=== PATIENT | male | born 1995 | race Caucasian/White ===

== ENCOUNTER 2017-05-13 17:45 | Emergency (ER) | payer SELFPAY ==
[~2017-05-13] VITALS: Ht 162.6 cm; Wt 72.6 kg
[2017-05-13 18:06] VITALS: BP 138/87
[2017-05-13] MEDS ORDERED: DIPHTH,PERTUSS(ACELL),TET TOX 0.5 ML DISP.SYRIN. VAX IM ONE (18:45)
[2017-05-13] MEDS ORDERED: diphenhydrAMINE HCL 25 MG CAPSULE PO ONE (18:45)
[2017-05-13] MEDS ORDERED: DEXAMETHASONE SOD PHOS 20 MG/5 ML VIAL. IM ONE (18:45)
[2017-05-13] MEDS ORDERED: FAMOTIDINE 20 MG TABLET. PO ONE (18:45)
[2017-05-13] MEDS ORDERED: PRED50TA PO (18:55)
[2017-05-13] MEDS ORDERED: FAMO20TA5 PO (18:55)
--- NOTE | 2017-05-13 18:55 | PHYS DOC ---
Past Medical History Past Medical History: Other Additional Past Medical Histor: RENAL AGENESIS Past Surgical History: No Surgical History Alcohol Use: None Drug Use: None Adult General Chief Complaint Chief Complaint: SKIN PROBLEM HPI HPI Patient is a 21 year old male who presents with a rash throughout his body that began yesterday. Patient denies any known cause for the rash though he states yesterday he picked a mice in his house and had it in his pocket for a while. Patient denies the mice bitting him. Patient denies any difficulty breathing or throat swelling or tongue swelling. Review of Systems Review of Systems Constitutional: Denies fever or chills [] Musculoskeletal: Denies back pain or joint pain [] Integument: rash Neurologic: Denies headache, focal weakness or sensory changes [] All other systems were reviewed and found to be within normal limits, except as documented in this note. Current Medications Current Medications Current Medications Medications (Trade) Dose Ordered Sig/Karli Start Time Stop Time Status Last Admin Dose Admin Dexamethasone Sodium Phosphate (Decadron) 10 mg 1X ONCE 05/13/17 18:45 05/13/17 18:46 DC 05/13/17 18:51 10 MG Diphenhydramine HCl (Benadryl) 25 mg 1X ONCE 05/13/17 18:45 05/13/17 18:46 DC 05/13/17 18:52 25 MG Diphtheria/ Tetanus/Acell Pertussis (Boostrix) 0.5 ml ONCE ONCE 05/13/17 18:45 05/13/17 18:46 DC 05/13/17 18:50 0.5 ML Famotidine (Pepcid) 20 mg 1X ONCE 05/13/17 18:45 05/13/17 18:46 DC 05/13/17 18:53 20 MG Allergies Allergies Allergies Coded Allergies Type Severity Reaction Last Updated Verified No Known Drug Allergies 05/13/17 No Physical Exam Physical Exam Constitutional: Well developed, well nourished, no acute distress, non-toxic appearance. [] HENT: Normocephalic, atraumatic, bilateral external ears normal, oropharynx moist, no oral exudates, nose normal. [] Eyes: PERRLA, EOMI, conjunctiva normal, no discharge. [] Neck: Normal range of motion, no tenderness, supple, no stridor. [] Cardiovascular:Heart rate regular rhythm, no murmur [] Lungs & Thorax: Bilateral breath sounds clear to auscultation [] Abdomen: Bowel sounds normal, soft, no tenderness, no masses, no pulsatile masses. [] Skin: Warm, dry, patient has moderate amount of Urticaria rash on his bilateral upper extremities abdomen and a small amount of the same rash on the face and back. Back: No tenderness, no CVA tenderness. [] Extremities: No tenderness, no cyanosis, no clubbing, ROM intact, no edema. [] Neurologic: Alert and oriented X 3, normal motor function, normal sensory function, no focal deficits noted. [] Psychologic: Affect normal, judgement normal, mood normal. [] Current Patient Data Vital Signs Vital Signs Date Time Temp Pulse Resp B/P (MAP) Pulse Ox O2 Delivery O2 Flow Rate FiO2 05/13/17 18:06 98.1 79 18 99 Room Air 98.1 EKG EKG [] Radiology/Procedures Radiology/Procedures [] Course & Med Decision Making Course & Med Decision Making Pertinent Labs and Imaging studies reviewed. (See chart for details) Patient has contact dermatitis rash. He has no trouble breathing/ swallowing. He was given Decadron in the ED Pepcid and Benadryl. He will be discharged with prednisone famotidine and Benadryl. Provided return precautions and discharged in stable condition. Given Tetanus in the Ed he states he touched a mice yesterday but it did not bit him. Dragon Disclaimer Dragon Disclaimer This electronic medical record was generated, in whole or in part, using a voice recognition dictation system. Departure Departure Impression: Primary Impression: Contact dermatitis Disposition: 01 HOME, SELF-CARE Condition: STABLE Referrals: NON,STAFF (PCP) Follow-up with your doctor in one week Patient Instructions: Contact Dermatitis, [id number] Additional Instructions: You were seen with contact dermatitis rash from unknown cause. We put you on prednisone, take it as prescribed. Take Pepcid every day until the rash goes away. Take Benadryl every day until the rash clears. Follow-up with your doctor in 1-2 weeks. Scripts Famotidine (FAMOTIDINE) 20 Mg Tablet 20 MG PO DAILY, #14 TAB Prov: MUTUNGA,MARIA LUZ MAINTENANCE PERSON 05/13/17 Prednisone (PREDNISONE) 50 Mg Tablet 1 TAB PO DAILY, #4 TAB Prov: MUTUNGA,MARIA LUZ MAINTENANCE PERSON 05/13/17 Problem Qualifiers Primary Impression: Contact dermatitis Contact dermatitis type: unspecified Contact dermatitis trigger: unspecified trigger Qualified Codes: L25.9 - Unspecified contact dermatitis, unspecified cause MARIA LUZ FLOYD APRN May 13, 2017 18:55
== END 2017-05-13 19:10 | disposition home or self-care (01) ==
LOC: ER 17:45
DX: L25.9 Unspecified contact dermatitis, unspecified cause (principal)
CPT/HCPCS: 90471; 90715; 96372; 99284; J1100; Q0163